=== PATIENT | male | born 1965 | race Caucasian/White ===

== ENCOUNTER → 2016-05-05 | Outpatient (CLI) | payer MEDICAID ==
[~2016-05-05] MED LIST: FLEXERIL10 MG PO; KLONOPIN1 MG PO; MORPHINE SULFAT30 M3 PO; OXYCODONE SR 2020 MG PO; PHENERGAN 25MG.25 M1 PO
[2016-05-05 20:36] LABS: AMPHETAMINES/METAMPHETAMINES NEGATIVE ng/mL (<1000)
== END ==
LOC: LAB 19:52
PROVIDERS: Emergency Medicine
DX: Z79.899 Other long term (current) drug therapy (principal)

== ENCOUNTER → 2017-01-26 | Outpatient (CLI) | payer MEDICAID ==
[2017-01-26 20:03] LABS: BUN 3 mg/dL (7-18)
[2017-01-26 20:19] LABS: GFR (ESTIMATED) 102 ML/MIN (>60)
[2017-01-26 20:31] LABS: AMPHETAMINES/METAMPHETAMINES NEGATIVE ng/mL (<1000)
[2017-01-30 09:42] LABS: Alprazolam Negative (Cutoff=100); Benzodiazepines Negative ng/mL (Cutoff=100); Clonazepam Negative (Cutoff=100); Flurazepam Negative (Cutoff=100); Lorazepam Negative (Cutoff=100); Midazolam Negative (Cutoff=100); Temazepam Negative (Cutoff=100); Triazolam Negative (Cutoff=100)
== END ==
LOC: LAB 18:00
PROVIDERS: Emergency Medicine
DX: E11.9 Type 2 diabetes mellitus without complications (principal); Z79.899 Other long term (current) drug therapy